=== PATIENT | male | born 1980 | race Caucasian/White ===

== ENCOUNTER 2022-04-07 13:13 | Outpatient (CLI) | payer BC, SELFPAY ==
[2022-04-07 21:37] LABS: Albumin* 4.3 g/dL (3.3-5.0); Chloride* 101 mmol/L (96-114); Sodium* 137 mmol/L (135-149)
[2022-04-07 21:38] LABS: Potassium* 4.1 mmol/L (3.6-5.1)
[2022-04-07 21:40] LABS: Alanine Aminotransferase* 17 U/L (4-50); Alkaline Phosphatase* 93 U/L (40-150); Aspartate Amino Transferase* 23 U/L (12-35); Bilirubin Total* 0.3 mg/dL (0.1-1.5); Blood Urea Nitrogen* 22 mg/dL (5-24); Carbon Dioxide* 28 mmol/L (20-32); Creatinine* 1.1 mg/dL (0.5-1.5); Estimated Glomerular Filt Rate 86 ml/min; Glucose* 97 mg/dL (60-115); Total Protein* 6.9 g/dL (6.0-8.3)
[2022-04-07 21:41] LABS: Calcium* 9.2 mg/dL (8.4-10.6)
== END 2022-04-07 13:14 | disposition home or self-care (01) ==
LOC: LKVREF 13:14
PROVIDERS: PCP Family Medicine; Visit Provider Family Medicine
DX: R10.9 Unspecified abdominal pain (principal)
CPT/HCPCS: 80053

== ENCOUNTER 2022-04-28 08:25 | Outpatient (CLI) | payer BC, SELFPAY ==
[2022-04-28 14:07] LABS: Chloride* 101 mmol/L (96-114); Potassium* 4.5 mmol/L (3.6-5.1); Sodium* 136 mmol/L (135-149)
[2022-04-28 14:09] LABS: Cholesterol* 195 mg/dL (90-199)
[2022-04-28 14:10] LABS: Blood Urea Nitrogen* 19 mg/dL (5-24); Carbon Dioxide* 28 mmol/L (20-32); Estimated Glomerular Filt Rate 97 ml/min; Glucose* 107 mg/dL (60-115); Triglycerides* 90 mg/dL (40-149)
[2022-04-28 14:11] LABS: Calcium* 9.1 mg/dL (8.4-10.6); HDL Cholesterol* 64 mg/dL (>=40); LDL Cholesterol Calculated 113 mg/dL (<100)
== END 2022-04-28 08:26 | disposition home or self-care (01) ==
PROVIDERS: PCP Family Medicine; Visit Provider Family Medicine
DX: Z00.00 Encounter for general adult medical examination without abnormal findings (principal); E78.00 Pure hypercholesterolemia, unspecified; R10.9 Unspecified abdominal pain; F98.8 Other specified behavioral and emotional disorders with onset usually occurring in childhood and adolescence
CPT/HCPCS: 80048; 80061

== ENCOUNTER 2022-05-06 07:01 | Outpatient (CLI) | payer BC, SELFPAY ==
--- NOTE | 2022-05-06 07:15 | CRLHL7_ITS ---
For Patients: As a result of the Century Cures Act, medical imaging exams and procedure reports are released immediately into your electronic medical record. You may view this report before your referring provider. If you have questions, please contact your health care provider. CLINICAL HISTORY: EPIGASTRIC AND LT SIDED PAIN COMPARISON: none TECHNIQUE: Real time boss scale imaging and color Doppler analysis was performed of the abdomen. FINDINGS: A hyperechoic lesion within the left hepatic lobe measures 1.1 x 1.2 x 1.0 cm, consistent with hemangioma. Indeterminate near isoechoic/slightly hyperechoic lesion within the right hepatic lobe which slightly distorts the contour of the liver, measuring 2.1 x 1.5 x 2.2 cm. Other smaller lesions are suspected elsewhere. The spleen is of normal size. The visualized pancreas appears normal. The proximal abdominal aorta and IVC appear normal. There is no evidence of ascites. The gallbladder is of normal size and there is no evidence of sludge or stones within the gallbladder lumen. The gallbladder wall measures 2 mm in thickness. The common bile duct measures 4 mm in size within the lilliam hepatis. There is a subtle area heterogeneous echotexture within the left kidney measuring 3.3 x 2.4 x 3.1 cm which is indeterminate. The right kidney measures 11.0 cm in length and the left kidney measures 12.0 cm. There is no evidence of a renal calculus or hydronephrosis. IMPRESSION: Indeterminate liver lesion measuring 2.2 cm within the right hepatic lobe. Other smaller indeterminate lesions are also present. Benign hemangioma left hepatic lobe. Indeterminate slightly hypoechoic lesion left kidney measuring 3.3 cm. Recommend dynamic pre and postcontrast CT of the abdomen and pelvis using liver protocol for further evaluation of the above findings. Normal gallbladder. No splenomegaly or ascites. Dictated by Himanshu Khan MD @ 05/06/2022 9:02:27 AM (Electronically Signed)
== END 2022-05-06 07:02 | disposition home or self-care (01) ==
LOC: US 07:02
PROVIDERS: PCP Family Medicine; Visit Provider Family Medicine
DX: R10.13 Epigastric pain (principal); K76.9 Liver disease, unspecified; N28.9 Disorder of kidney and ureter, unspecified
CPT/HCPCS: 76700

== ENCOUNTER 2022-05-26 07:10 | Outpatient (CLI) | payer BC, SELFPAY | END 2022-05-26 07:11 | disposition home or self-care (01) | LOC: OP CLINIC 07:12 | PROVIDERS: PCP Family Medicine; Visit Provider Surgery | DX: Z12.11 Encounter for screening for malignant neoplasm of colon (principal); K63.5 Polyp of colon; K62.1 Rectal polyp; Z83.71 Family history of colonic polyps | CPT/HCPCS: 45380; 45385; 88305; 99153; J2250; J3010 ==

== ENCOUNTER 2023-05-11 08:00 | Outpatient (CLI) | payer BC, SELFPAY | END 2023-05-11 08:01 | disposition home or self-care (01) | LOC: NFLDREF 05-12 11:56 | PROVIDERS: PCP Family Medicine; Referring Provider Family Medicine; Visit Provider Family Medicine | DX: Z00.00 Encounter for general adult medical examination without abnormal findings (principal); E78.00 Pure hypercholesterolemia, unspecified; Z80.42 Family history of malignant neoplasm of prostate; Z12.5 Encounter for screening for malignant neoplasm of prostate | CPT/HCPCS: 80048; 80061; 84153 ==

== ENCOUNTER 2023-08-31 15:40 | Emergency (ER) | payer BC, SELFPAY ==
[2023-08-31 15:49] VITALS: BP 137/87; PULSE 104; RESP 18; TEMP 36.4; O2SAT 98; BMI 30.3
== END 2023-08-31 16:21 | disposition left against medical advice (07) ==
PROVIDERS: Emergency Provider Emergency Medicine Emergency Medical Services; PCP Family Medicine
DX: Z53.21 Procedure and treatment not carried out due to patient leaving prior to being seen by health care provider (principal)

== ENCOUNTER 2024-07-03 12:33 | Outpatient (CLI) | payer BC, SELFPAY | END 2024-07-03 12:34 | disposition home or self-care (01) | PROVIDERS: PCP Family Medicine | DX: R10.9 Unspecified abdominal pain (principal) | CPT/HCPCS: 80053; 83690 ==

== ENCOUNTER 2024-07-27 15:36 | Outpatient (CLI) | payer BC, SELFPAY ==
--- NOTE | 2024-07-27 16:00 | CRLHL7_ITS ---
For Patients: As a result of the Century Cures Act, medical imaging exams and procedure reports are released immediately into your electronic medical record. You may view this report before your referring provider. If you have questions, please contact your health care provider. Indication: LIVER LESION SEEN 2 YEARS AGO, LEFT SIDED ABDOMINAL PAIN Technique: CT Abdomen LIVER PROTOCOL WITH 95 CC ISOVUE 370. Pre and postcontrast CT abdomen. Postcontrast images in the arterial, portal venous and 5 minute delayed phase. Please note that all CT scans at this facility use dose modulation, iterative reconstruction, and/or weight-based dosing when appropriate to reduce radiation dose to as low as reasonably achievable. Comparison: Ultrasound 05/06/2022 Findings: Hypodense lesion with discontinuous peripheral enhancement with central fill-in noted within the left hepatic lobe measures 2.2 cm. This is consistent with a benign intrahepatic hemangioma. No other liver lesion is present. No ascites. No biliary duct obstruction. Gallbladder is incompletely distended. Pancreas normal. Unremarkable spleen, adrenal glands and kidneys. A few scattered subcentimeter central mesenteric lymph nodes are present with mild associated stranding compatible with mild incidental nonspecific mesenteric panniculitis. 4.7 millimeter nodule within the right lower lobe is present, no follow-up indicated with nodules less than 6 millimeters. No fracture is present. Impression: 2.2 cm benign intrahepatic hemangioma within the left hepatic lobe. No suspicious hepatic lesion. Please note that all CT scans at this facility use dose modulation, iterative reconstruction, and/or weight-based dosing when appropriate to reduce radiation dose to as low as reasonably achievable. Dictated by Himanshu Khan MD @ 07/28/2024 11:52:57 AM (Electronically Signed)
== END 2024-07-27 15:37 | disposition home or self-care (01) ==
LOC: CT 15:37
PROVIDERS: PCP Family Medicine; Visit Provider Family Medicine
DX: K76.9 Liver disease, unspecified (principal); D18.09 Hemangioma of other sites; R10.12 Left upper quadrant pain
CPT/HCPCS: 74170; Q9967

== ENCOUNTER 2024-08-22 10:19 | Outpatient (CLI) | payer BC, SELFPAY | END 2024-08-22 10:20 | disposition home or self-care (01) | LOC: NFLDREF 08-28 04:09 | PROVIDERS: PCP Family Medicine; Referring Provider Family Medicine; Visit Provider Family Medicine | DX: E78.00 Pure hypercholesterolemia, unspecified (principal); Z12.5 Encounter for screening for malignant neoplasm of prostate; J18.9 Pneumonia, unspecified organism | CPT/HCPCS: 80053; 80061; G0103 ==